=== PATIENT | female | born 1995 | race Caucasian/White ===

== ENCOUNTER 2017-11-16 12:38 | Emergency (ER) | payer OTHER, SELFPAY ==
[2017-11-16 12:41] VITALS: BP 103/71; PULSE 92; RESP 14; TEMP 37.6; O2SAT 98; BMI 21.4
[2017-11-16] MEDS: Ketorolac 30 MG/ML Syringe IV (13:17)
[2017-11-16] MEDS: 0.9% Normal Saline 1,000 ML 1000 ML IV (13:17)
[2017-11-16] MEDS: Ondansetron 4 MG/2 ML Vial IV (13:17)
[2017-11-16 13:19] LABS: Absolute Lymphocyte Count 0.59 X10^3/ul (0.83-4.51); Absolute Neutrophil Count 3.5 X10^3/uL (2.0-7.7); Basophil# 0.01 X10^3/uL; Basophil% 0.2 % (0-1); Eosinophil# 0.01 X10^3/uL; Eosinophils% 0.2 % (0-5); Hematocrit 41.3 % (37-47); Hemoglobin 13.6 g/dl (12.0-15.0); Lymphocyte # 0.59 X10^3/ul (4.0); Lymphocyte % 13.5 % (19-41); Mean Corp Hgb Conc 32.9 g/gl (32-36); Mean Corpuscular Volume 85.2 fL (81-99); Mean Platelet Vol. 10.1 fl (6.2-12.0); Monocyte# 0.28 X10^3/uL; Monocyte% 6.4 % (0-10); Neutrophil # 3.48 X10^3/uL (2.7-7.7); Neutrophil % 79.7 % (47-70); Platelet Count 214 K/mm3 (150-450); RBC Distribution Width CV 13.2 % (11.6-14.6); RBC Distribution Width SD 41.1 fl (35.1-43.9); Red Blood Count 4.85 M/mm3 (4.2-5.4); White Blood Count 4.4 K/mm3 (4.4-11.0)
[2017-11-16 13:20] LABS: Differential Indicated SCAN CRITERIA MET; POSITIVE COUNT NO; POSITIVE DIFFERENTIAL YES; POSITIVE MORPHOLOGY NO
[2017-11-16 13:35] LABS: AST(SGOT) 19 U/L (15-37); Alanine Aminotransfer ALT/SGPT 23 U/L (13-56); Albumin, Serum 3.9 g/dL (3.2-5.0); Alkaline Phosphatase 55 U/L (45-117); Anion Gap 7 (5-15); BUN 14 mg/dL (7-18); BUN/Creat Ratio 17.1 RATIO (10-20); Bilirubin, Direct 0.18 mg/dL (0.00-0.30); Chloride 104 mmol/L (98-107); Creatinine, Serum 0.82 mg/dL (0.55-1.02); EST Glomerular Filtration Rate 91 mL/min (>60); Est Glom Filt Rate - Afr Amer 110 mL/min (>60); Estimated Creatinine Clearance 83.67 ml/min; Globulin 3.1 g/dL (2.2-4.2); Glucose 83 mg/dL (74-106); Lipase 90 U/L (73-393); Potassium 3.5 mmol/L (3.5-5.1); Sodium Level 137 mmol/L (136-145)
[2017-11-16 13:38] LABS: Pregnancy, Serum, hCG Quali. NEGATIVE Negative (0-9 Nonpreg)
[2017-11-16] MEDS: 0.9% Normal Saline 1,000 ML 999 ML IV (14:36)
--- NOTE | 2017-11-16 14:36 | NURSING ---
assisted pt up to bathroom with patient's mother. Patient was unable to pee after initial NS bolus. Dr. Luna notified and orders another liter NS bolus.
[2017-11-16 14:40] VITALS: BP 104/73; PULSE 81; RESP 16; O2SAT 99
--- NOTE | 2017-11-16 15:24 | ED.VISSUMM ---
- ER Visit Summary Date of Service: 11/16/17 Chief Complaint: Abdominal pain History of Present Illness: The patient is a [address] Neri Weinstein. She reports that she has abdominal pain that began yesterday at 5 AM. Some aching diffuse pain that is 710 hours and 510 currently. Is worsened by pushing on it. Relieved by remaining still. She reports she is vomited multiple times. No blood or emesis. She had 2 episodes of diarrhea. No blood in her stools or black tarry stools. No dysuria or frequency. Her last menstrual period was 2 weeks ago. Patient denies sick contacts. Has not been camping out of the country. No possible bad food exposure. She does drink well water, but others at home due as well and they are not ill. No recent antibiotic use. Physical Examination: Vitals: Stable. Afebrile. General: Well-nourished and well-developed. Head: Normocephalic atraumatic. Neck: Supple, no lymphadenopathy. No JVD. Nontender. Cardiovascular: Regular rate and rhythm. No murmurs. Respiratory: No respiratory distress. Clear to auscultation bilaterally. Abdominal: Soft, mild diffuse tenderness palpation with moderate pain in the left upper quadrant/epigastric/right upper quadrants, nondistended, normal bowel sounds. No guarding, rebound, or peritoneal signs. Back: Nontender. Extremities: Nontender, no edema. Skin: Normal color, no rash. Neurologic: Alert and oriented ?3. Cranial nerves II through XII are intact. Normal strength and sensation. Psych: Normal affect. Test Results: CBC is marked for segment neutrophils 80 and lymphocytes 14. Chem-7 is more for calcium of 8.0. LFTs are normal. Lipase negative. test negative. Emergency Department Course and Treatment: She had an IV placed. She was given 2 L normal saline. Given Zofran and Toradol IV. She has had no vomiting or diarrhea while here. She feels much improved. Treatment Plan: Patient will be discharged with Caitlyn instructed follow-up Dr. Neri Weinstein in 1 to days not improving. Return to the emergency department for any worsening symptoms. Disposition: To home in improved and stable condition. Impression: 1. Vomiting/diarrhea. This note was generated with [employer] software. It may contain incorrect words, spelling, and punctuation that were not noted in review of the chart prior to signing ED Disposition - Plan for ED Patient: Disposition: Home or Assisted Living Chief Complaint: Abd Pain Instructions: ED Vomiting Diarrhea Nonspecific Ad Prescriptions: Ondansetron [Zofran Odt] 4 mg PO Q8H PRN PRN #10 tablet PRN Reason: Nausea Referrals: Neri Weinstein MD [Primary Care Provider] - 1-2 Days if not improving
[2017-11-16 15:48] VITALS: BP 94/64; PULSE 70; RESP 17; O2SAT 99
== END 2017-11-16 15:49 | disposition home or self-care (01) ==
PROVIDERS: Emergency Provider Emergency Medicine; Family Provider Family Medicine; PCP Family Medicine
DX: R11.2 Nausea with vomiting, unspecified (principal); R19.7 Diarrhea, unspecified; R10.11 Right upper quadrant pain; R10.12 Left upper quadrant pain; R10.13 Epigastric pain; J45.909 Unspecified asthma, uncomplicated; R68.83 Chills (without fever)
CPT/HCPCS: 80048; 80076; 83690; 84703; 85025; 96361; 96374; 96375; 99283; J7030; A4216; J2405

== ENCOUNTER → 2021-02-21 09:04 | Outpatient (CLI) | payer OTHER, SELFPAY ==
[2021-02-17 14:24] VITALS: BMI 22.1
--- NOTE | 2021-02-21 09:04 | US_ITS ---
STUDY: ULTRASOUND BREAST - RIGHT REASON FOR EXAM: Female, 25 years old. Palpable lump in the right breast. TECHNIQUE: Axial and longitudinal images of the RIGHT breast were performed with a high resolution ultrasound transducer. # OF IMAGES: 23 COMPARISON: Comparison is made with prior mammogram done earlier in day. FINDINGS: RIGHT Breast: The palpable abnormality corresponds to a 2 cm x 1.6 cm x 0.6 cm hypoechoic slightly lobulated nodular density at the 12 o''clock position of the breast at 8 cm from nipple. A biopsy is recommended. US/Breast Limited Unilateral IMPRESSION: 2 cm x 1.6 cm x 0.6 cm hypoechoic slightly lobulated nodular density at the 12 o''clock position of the breast at 8 cm from the nipple. Biopsy is recommended. ASSESSMENT CATEGORY: BIRADS Category 4: Suspicious - Biopsy Should Be Considered. A letter regarding these results will be sent to the patient by the facility within 30 days. Electronically Signed: Jozef Negron MD at 11:06 EDT , Service support ,
--- NOTE | 2021-02-21 09:04 | BI_ITS ---
MAMMOGRAPHY - BILATERAL DIAGNOSTIC REASON FOR EXAM: Female, 25 years old. Right breast lump. PERTINENT HISTORY: Non-contributory. TECHNIQUE: Digital bilateral breast tate (3D mammographic acquisition) in the CC and MLO projections. 2-D mediolateral oblique (MLO) and craniocaudad (CC) views of both breasts were obtained. CAD: Full Field Digital Mammography with Computer Added Detection was performed. COMPARISON: None. Baseline examination. FINDINGS: Breast Composition: The breasts are extremely dense, which lowers the sensitivity of mammography. There are no dominant masses or suspicious calcifications. No other significant abnormalities are identified. BI/DIAG MAMM W/CAD, BILAT IMPRESSION: Negative diagnostic mammogram. With the patient''s history of a palpable lump in the right breast, correlation with ultrasound is recommended. ASSESSMENT CATEGORY: BIRADS Category 0: Incomplete. Need additional imaging evaluation. A letter regarding these results will be sent to the patient by the facility within 30 days. Approximately 10% of breast cancers are not detected by mammography. A normal mammogram should not delay biopsy of a clinically suspicious abnormality. Electronically Signed: Jozef Negron MD at 10:26 EDT , Service support ,
== END ==
PROVIDERS: PCP Family Medicine; Referring Provider Nurse Practitioner Women's Health; Visit Provider Nurse Practitioner Women's Health
DX: N63.10 Unspecified lump in the right breast, unspecified quadrant (principal)
CPT/HCPCS: 76642; 77062; 77066; G0279

== ENCOUNTER → 2021-02-25 | Outpatient (CLI) | payer OTHER, SELFPAY ==
[2021-02-25 13:48] VITALS: BMI 22.1
--- NOTE | 2021-02-25 14:15 | BRBX_PTH ---
PATIENT: SHOSHANA ANGULO LOC: [facility] U#:[id number] AGE/SX: 25/F ROOM: RE02/25/[address]: Dr. Christina Elise MD : 1995 BED: DIS: 02/25/2021 SPEC #: [id number] RECD: 02/25/21 15:03 STATUS: [facility] REQ #: [id number] JOANN: 02/25/21 14:[address]: Christina Elise DEPT: SURGICAL PATHOLOGY RECD BY: Sonal Tenorio ENTERED: 02/26/21 07:11 SP TYPE: BREAST BX OTHR DR: Dr. Neri Weinstein MD Tissues: Right breast, NOS Procedures: Surgery Specimen Level IV HEADER OPERATION: Ultrasound-guided right breast needle core biopsy PRE-OP DIAGNOSIS: Right breast mass N63.10 TISSUE SUBMITTED: Right breast tissue at 12 o?clock, 8 cm from nipple MICROSCOPIC DIAGNOSIS Right breast at 12 o?clock, core biopsy: Benign breast tissue. AM:himanshu 02/27/2021 COMMENT This case was reviewed and diagnosis discussed with Dr. Elise on 03/04/21 at 11:36 a.m. MICROSCOPIC DESCRIPTION Slides are reviewed. GROSS DESCRIPTION Received in fixative is one container labeled with the patient name and designated right breast. The specimen consists of multiple elongated fragments of sanon-yellow fibroadipose tissue that in aggregate measure 1.5 x 0.2 x 0.1 cm. The entire specimen is submitted in one cassette. / SJ:himanshu 02/26/21 TC:5 [facility]: [id number]
== END | disposition home or self-care (01) ==
LOC: LABSPEC 15:24
PROVIDERS: PCP Family Medicine; Referring Provider Surgery; Visit Provider Surgery
DX: N63.10 Unspecified lump in the right breast, unspecified quadrant (principal)
CPT/HCPCS: 88305

== ENCOUNTER 2021-04-11 05:58 | Day surgery (SDC) | payer OTHER, SELFPAY ==
[2021-02-25 13:48] VITALS: BMI 22.1
[2021-04-11 06:31] VITALS: BP 113/82; PULSE 95; RESP 16; TEMP 36.9; O2SAT 100; BMI 21.6
[2021-04-11 06:41] LABS: Internal QC Validated? YES +Cl - CLEAR BKGD; Pregnancy, Urine Negative Negative
[2021-04-11] MEDS: Lactated Ringers 1,000 ML 100 ML IV (06:51)
--- NOTE | 2021-04-11 06:58 | HP.PCM.SX_ITS ---
HPI - General HPI Narrative SHOSHANA ANGULO, is a 25 F who presents for for right breast excisional biopsy due to discordance with breast biopsy showed normal tissue. PFSH Medical History Asthma, exercise induced History of IBS History of irregular heartbeat Non-smoker Home Medications NK 02/25/21 [History Last Taken Unknown] Allergy/AdvReac Type Severity Reaction Status Date / Time No Known Allergies Allergy Verified 04/11/21 06:29 Surgical History H/O oral surgery Social History household members: family and other current occupational status: employed current occupation: Teacher at [employer] history of recent travel: Yes sexually active: No Smoking Status: Never smoker alcohol intake: current alcohol intake frequency: holidays/special occasions only substance use type: does not use what type of physical activity do you participate in: walking frequency: 5-6 times per week seatbelt use: always do you feel safe at home: Yes additional social history: single Vital Signs Vital Signs Vital Signs: 04/11/21 06:31 Temperature 98.5 F Temperature Source Temporal Pulse Rate 95 Respiratory Rate 16 Respiratory Pattern Normal Blood Pressure 113/82 H Blood Pressure Mean 92 Blood Pressure Source Monitor Blood Pressure Position Sitting Blood Pressure Location Left Arm Pulse Ox 100 Oxygen Delivery Method Room Air Weight Weight: 118 lb 2.684 oz Body Mass Index (BMI) 21.6 Physical Exam Const alert, oriented x3 and no apparent distress HEENT normocephalic and head/scalp atraumatic Chest Chest Narrative: Right breast nodule about 10-11 o'clock about 2 cm in size, no change in overlying skin, no nipple discharge Resp normal respiratory effort Cardio regular rate GI soft to palpation and non-tender; Negative for non-distended Palpation: Negative for guarding Extremity no clubbing, cyanosis or edema Neuro CN's II-XII intact bilaterally Psych mental status grossly normal Results Lab / Micro Data Labs: Laboratory Results - last 24 hr 04/11/21 06:15: Urine Test Negative Assessment & Plan Assessment/Plan (1) Mass of right breast on mammogram: PLAN: Plan for excisional biopsy of right breast nodule. Discussed procedure including risks not limited to bleeding, infection, need for further surgery. Patient expressed understanding no further questions this time. Christina Elise M.D. Pager: [phone] [facility] [address] [place] [address] [address] [place] [address] Office: [phone] Procedure Criteria Type of Procedure Procedure Type: Elective Elective Risks - COVID COVID Risk Discussion: The surgeon/proceduralist and patient have discussed in detail the risk of exposure to and/or potential harm posed by the COVID-19 virus with having a surgery/procedure at this time versus the risk of delaying the surgery/procedure. It is not possible to know either the risk of delaying the surgery or procedure or chance of getting an infection with perfect accuracy, but a joint decision was made between the patient and the surgeon/proceduralist to proceed at this time with the scheduled surgery/procedure as indicated on the consent form.
[2021-04-11] MEDS: Cefazolin 2 GM in 0.9% Normal Saline 100 ML IV (07:37)
[2021-04-11] MEDS: Lidocaine 1%/Epi 1:200 (30ml) 30 ML AMPUL (07:45)
--- NOTE | 2021-04-11 07:58 | OP.PCM_ITS ---
Report of Operation Date of Procedure: 04/11/21 Pre-Operative Diagnosis: Right breast mass 12:00 8 cm from the nipple Post-Operative Diagnosis: Same Surgery/Procedure Performed:: Excision of right breast mass 12:00 8 cm from the nipple Surgeon: Christina Elise Type of Anesthesia: MAC/Supplemental Anesthesiologist: Neri Lyons Special Medications: Ancef 2 g IV x1 Specimen's removed: Right breast mass 12:00 8 cm from the nipple Estimated Blood Loss (mL): < 10 cc Description of Procedure: Patient was brought to the operating placed on operating table. Timeout was completed verifying correct patient, procedure, site, positioning, special equipment prior to beginning procedure. General anesthesia was induced. Right breast was prepped and draped in usual sterile fashion. Curvilinear was planned over the right breast mass and made with a 15 blade scalpel. This was deepened with electrocautery. The right breast mass was dissected out using electrocautery. It was marked with long stitch lateral and short stitch superior. And sent to repeat for clip verification?clip was ve rified in the specimen. Then to pathology. Wound was irrigated with sterile water. Incision was closed with 3-0 subdermal Vicryl and 4-0 Monocryl in the skin with Steri-Strips and OpSite. Patient tolerated procedure well was taken the postanesthesia care unit in stable condition. Complications none
--- NOTE | 2021-04-11 07:59 | BRBX_PTH ---
PATIENT: SHOSHANA ANGULO [place] [facility] [place][id number] AGE/SX: 25/F ROOM: RE04/11/[address]: Dr. Christina Elise MD : 1995 BED: DIS: 04/11/2021 SPEC #: [id number] RECD: 04/11/21 08:05 STATUS: [facility] RERemedios #: [id number] JOANN: 04/11/21 07:[address]: Christina Elise DEPT: SURGICAL PATHOLOGY RECD BY: Sonal Tenorio ENTERED: 04/11/21 08:36 SP TYPE: BREAST BX OTHR DR: Dr. Neri Weinstein MD Tissues: Right breast, NOS Procedures: Surgery Specimen Level V HEADER OPERATION: Excisional breast biopsy PRE-OP DIAGNOSIS: Mass of right breast on mammogram TISSUE SUBMITTED: Right breast nodule, 12 o?clock, 8 cm from nipple MICROSCOPIC DIAGNOSIS Right breast nodule, 12 o?clock, 8 cm from the nipple, excisional biopsy: Fibroadenoma, completely excised. Negative for atypia or malignancy. See comment. MICHAELA:himanshu 04/15/2021 COMMENT Please make reference to previous specimen ([id number]) right breast at 12 o?clock, core biopsy with diagnosis of ?benign breast tissue.? MICROSCOPIC DESCRIPTION Slides are reviewed. GROSS DESCRIPTION Received in fixative is one container labeled with the patient's name and designated right breast nodule, 12 o'clock, 2 cm in size. The specimen consists of a piece of sanon-yellow fibroadipose tissue measuring 3?x 2 x 1.5 cm. The specimen is oriented as follows: short stitch - superior and long stitch - lateral. The specimen is inked as follows: anterior - yellow, posterior - black, superior - blue, inferior - green, medial - red and lateral - orange. Sections reveal a sanon, solid nodule measuring 2.5 x 1 x 1 cm. The entire specimen is submitted in three cassettes as follows: 1??perpendicular medial and lateral margins, 2 & 3 - rest of the specimen including other margins. / MICHAELA:himanshu 04/11/21 TC:1 CPT: 57597
--- NOTE | 2021-04-11 08:01 | BI_ITS ---
SURGICAL BREAST SPECIMEN RADIOGRAPH CLINICAL: Document presence of clip in biopsy specimen. FINDINGS: Specimen shows presence of a localization clip within the mass lesion in the right breast. Specimen. This corresponds with soft tissue density in the breast specimen. All of this was sent to pathology for further evaluation. Pathology is pending and an addendum to the biopsy report will be performed after the final pathologic diagnosis is rendered. IMPRESSION: The biopsy localization clip is located within the biopsy specimen which was sent to pathology for further evaluation Electronically Signed: Esteban Gomez DO at 14:04 EDT Tel , Service support , BI/Breast Biopsy Specimen
--- NOTE | 2021-04-11 08:02 | EX.PCM.DISCH ---
Discharge Instructions Procedure Breast Biopsy Diet Discharge Diet: No restrictions Activity Discharge Activity: May Not Drive (while taking narcotic pain medications.) May shower in (days): 1 Lifting Restrictions: no lifting > 15 lbs on side of surgery for 2 days Dressing / Incision Call your doctor if your incision/area has: Continuous Slow Oozing, Sudden Increased Bleeding, Increased Pain/ Swelling, Increased Redness, Foul Smelling Discharge and Swelling at the incision site Call your doctor if you observe: Fever of 101 or Higher Remove Dressing in: 2 days Follow Up Care Please Follow Up With: Christina Elise MD When: Please call [phone] for an appointment to be seen in 2 week. Test Results: Test results from this visit will be discussed in further detail at your follow-up appointment, if applicable. Discharge Plan Admission Attending Provider: Christina Elise Primary Care Provider: Neri Weinstein Discharge Orders/Prescriptions Prescriptions: New hydrocodone-acetaminophen 5-325 mg tablet 1 tab PO Q6H PRN (Reason: pain) 3 Days Qty: 5 RF: 0 Referrals / Follow Up: Neri Weinstein MD [Primary Care Provider] - Disposition Disposition (needs filled in before D/C Order can be placed): Home, Self Care
[2021-04-11 08:17] VITALS: BP 102/61; BP 113/82; BP 97/68; PULSE 72; PULSE 73; RESP 16; TEMP 36.2; O2SAT 96; O2SAT 98
[2021-04-11 08:45] VITALS: BP 113/82; BP 99/70; PULSE 72; RESP 16; TEMP 36.3; O2SAT 99
[2021-04-11 09:30] VITALS: BP 107/70; BP 113/82; PULSE 70; RESP 16; TEMP 36.8; O2SAT 100
== END 2021-04-11 09:40 | disposition home or self-care (01) ==
LOC: SDC 05:58 → AC 05:59
PROVIDERS: Anesthesiology; PCP Family Medicine; Referring Provider Surgery; Visit Provider Surgery
PROC: (CPT 19120; principal; 2021-04-11 07:15)
DX: D24.1 Benign neoplasm of right breast (principal)
CPT/HCPCS: 00400; 19120; 76098; 81025; 88305; 88307; J7120; J2405

== ENCOUNTER → 2024-04-04 | Outpatient (CLI) | payer OTHER, SELFPAY ==
[2024-04-04 18:04] LABS: Cholesterol 209 mg/dL (200); Creatinine, Serum 0.77 mg/dL (0.55-1.02); EST Glomerular Filtration Rate 93 mL/min (>60); Est Glom Filt Rate - Afr Amer 112 mL/min (>60); High Density Lipoprotein 71 mg/dL
== END | disposition home or self-care (01) ==
LOC: MFPLAB 14:18
PROVIDERS: PCP Family Medicine; Visit Provider Family Medicine
DX: Z00.00 Encounter for general adult medical examination without abnormal findings (principal); Z13.220 Encounter for screening for lipoid disorders
CPT/HCPCS: 36415; 82465; 82565; 83718